=== PATIENT | male | born 1945 | race Caucasian/White ===

== ENCOUNTER 2016-12-01 21:10 | Emergency (ER) | payer MEDICARE, OTHER ==
[2016-12-01] MEDS ORDERED: Adacel (T-DAP) 0.5 ML VIAL ONE (21:34)
--- NOTE | 2016-12-01 22:29 | RAD ---
EXAM: LEFT HAND FIFTH DIGIT TWO VIEWS 12/01/16 HISTORY: Laceration. FINDINGS: There are multiple punctate foreign bodies in the soft tissues. Joint spaces are preserved. No fract ure. IMPRESSION: Multiple punctate foreign bodies. POS: [facility]
[2016-12-01] MEDS ORDERED: Bacitracin Zinc 1 Packet ONE (22:42)
== END 2016-12-01 23:10 | disposition home or self-care (01) ==
LOC: SCSER 21:10
DX: S56.428A Laceration of extensor muscle, fascia and tendon of left little finger at forearm level, initial encounter (principal); F32.9 Major depressive disorder, single episode, unspecified; I10 Essential (primary) hypertension; E78.5 Hyperlipidemia, unspecified; E11.9 Type 2 diabetes mellitus without complications; Z79.84 Long term (current) use of oral hypoglycemic drugs; Z79.899 Other long term (current) drug therapy; Z79.82 Long term (current) use of aspirin; Z23 Encounter for immunization; W27.0XXA Contact with workbench tool, initial encounter
CPT/HCPCS: 12001; 90471; 90715

== ENCOUNTER → 2016-12-05 | Day surgery (SDC) | payer MEDICARE ==
[~2016-12-05] MED LIST: Bacitracin Zinc Ointment 30 gm TUBE ONE; Betamet Acet/Betamet Na Ph 30 MG/5 ML VIAL ONE; Bupivacaine PF 0.5% 30 ML VIAL ONE; Fentanyl 100 MCG/2 ML VIAL ONE; Glycopyrrolate 0.2 MG/ML 5 ML SYRINGE ONE; HYDROcodone/Acetaminophen 5/325 mg Tablet ONE; Ketorolac Tromethamine 30 MG/ML VIAL ONE; Lidocaine 1% PF 5 ML VIAL ONE; Ondansetron HCl/PF 4 MG/2 ML Vial IVP PRN; Ondansetron HCl/PF 4 MG/2 ML Vial ONE; Promethazine HCl 25 MG/ML VIAL IM PRN; Promethazine HCl 25 MG/ML VIAL SLOW IVP PRN; Propofol 200 MG/20 ML VIAL ONE; Sodium Chloride 0.9% 10 ML ONE; ePHEDrine/0.9% NaCl/PF SYRINGE 50 mg/10 ml ONE
[2016-12-05 18:00] LABS: #Eosinphils 0.2 thou/uL (0.0-0.7); #Lymphocytes 1.5 thou/uL (1.20-3.40); #Monocytes 0.5 thou/uL (0.11-0.59); #Neutrophils 4.2 thou/uL (1.40-6.50); %Basophils 0.7 % (0.0-1.0); %Eosinophils 3.2 % (0.0-10.0); %Lymphocytes 23.6 % (21.0-51.0); %Monocytes 7.1 % (0.0-10.0); Hematocrit 44.7 % (42.0-52.0); Mean Platelet Volume 6.3 fL (7.4-10.4); Red Blood Cell (RBC) Count 4.66 mill/uL (4.70-6.10); White Blood Cell (WBC) Count 6.4 thou/uL (4.8-10.8)
--- NOTE | 2016-12-06 11:54 | OP ---
DATE OF PROCEDURE: 12/05/2016 PREOPERATIVE DIAGNOSIS: Left small finger wound. POSTOPERATIVE DIAGNOSES: 1. Left small finger wound. 2. Seventy percent laceration minimal contamination of small avulsion fracture of the middle phalan x. FINDINGS: Minimal contamination of the small finger wound with a small bony avulsion fracture dista l to the central slip; small finger, zone 2 extensor tendon laceration. PROCEDURES PERFORMED: 1. Debridement of bone, small fracture, 54449. 2. Debridement of wound, [id number]. 3. Extensor tendon repair, zone 2, 70% laceration. ANESTHESIA: General LMA technique, Calixto Martines CRNA, [place] Anesthesia. COMPLICATIONS: None. TOURNIQUET TIME: 18 minutes. ESTIMATED BLOOD LOSS: Less than 5 mL. INJECTABLE: 10 mL of 0.5% Marcaine, metacarpophalangeal joint block level at small finger. INDICATIONS: The patient had tendon laceration by exam that was probably not complete and may have involved the central slip or distal to it. For this reason because he had apparently avulsion, piec e of bone on the sagittal plane x-ray at the middle phalanx, operative intervention is indicated on a somewhat not elective schedule. DESCRIPTION OF PROCEDURE: After successful general LMA technique, the limb was prepped and draped. The patient had the wound extended after given a metacarpophalangeal block with 0.5% Marcaine 10 mL , 1 cm distal and 5 mm proximal. There was now a V-shaped incision. We elevated and found minimal amount of contamination particles under the skin, not deep, not involving the bone, but there was a small amount of bone that had a small avulsion piece of bone removed and this was on the more ulnar aspect, and it was here that he had a 70% laceration of the extensor mechanism, including 50% tendon and most of the oblique retinacular ligament area. For this reason, after debriding the bone with a curette, [employer] blade, debriding the skin with a co mbination of tenotomy scissors and [employer] blade, then the fat with the same instruments, we finished excision and debridement first down to and include the skin and fat and then using the large instru ments listed above to debride bone and the tendon area. Then, we irrigated with 1500 mL of normal s berny with antibiotics inside. At this point, the tendon edges were freshened, and then we re paired them using an interrupted [id number] 4-0 Prolene buried suture technique. Then, we coul d then see that the extension, even mild hyperextension restored with no flexion of the PIP joint. We elected because there was only 70% laceration not to pin it and because the central slip was not involved. After hemostasis was obtained, tourniquet deflated, the incision was closed with interrupted 4-0 nyl on. Bulky dressing applied over a finger tube gauze type dressing with a metal finger splint holdin g the PIP joint in neutral in between.
--- NOTE | 2016-12-07 06:29 | EKG ---
Test Reason : Blood Pressure : / mmHG Vent. Rate : 080 BPM Atrial Rate : 080 BPM P-R Int : 236 ms QRS Dur : 076 ms QT Int : 350 ms P-R-T Axes : 038 -08 008 degrees QTc Int : 403 ms Sinus rhythm with marked sinus arrhythmia with 1st degree A-V block Otherwise normal ECG When compared with ECG of 30-APR-2011 07:51, No significant change was found Confirmed by CHRISTELLE HER ([id number]) on 12/07/2016 6:28:52 AM Referred By: ANIKET Confirmed By:CHRISTELLE HER
== END ==
LOC: SDC 16:03
PROVIDERS: ATTEND Orthopaedic Surgery Hand Surgery
PROC: 0LQ80ZZ Repair Left Hand Tendon, Open Approach (ICD-10-PCS; principal; 2016-12-05)
DX: S62.627B Displaced fracture of middle phalanx of left little finger, initial encounter for open fracture (principal); E11.9 Type 2 diabetes mellitus without complications; I10 Essential (primary) hypertension; M06.9 Rheumatoid arthritis, unspecified; Z79.1 Long term (current) use of non-steroidal anti-inflammatories (NSAID); Z79.84 Long term (current) use of oral hypoglycemic drugs; Z79.82 Long term (current) use of aspirin; Z79.899 Other long term (current) drug therapy
CPT/HCPCS: 36415; 85025; 93005; 93010; 96374; A4216; J0702; J1885; J2001; J2405; J2704; J3010; J3490; S0020

== ENCOUNTER 2018-12-17 16:36 | Inpatient (IN) | payer MEDICARE ==
[~2018-12-17 16:36] MED LIST changes: -Bacitracin Zinc Ointment 30 gm TUBE ONE; -Betamet Acet/Betamet Na Ph 30 MG/5 ML VIAL ONE; -Bupivacaine PF 0.5% 30 ML VIAL ONE; +Dexamethasone 20 MG/5 ML VIAL ONE; -Fentanyl 100 MCG/2 ML VIAL ONE; -Glycopyrrolate 0.2 MG/ML 5 ML SYRINGE ONE; -HYDROcodone/Acetaminophen 5/325 mg Tablet ONE; +Heparin 10,000 UNITS/ 10 ML VIAL ONE; +Iopamidol 370 76% 100 ML VIAL ONE; -Ondansetron HCl/PF 4 MG/2 ML Vial IVP PRN; -Ondansetron HCl/PF 4 MG/2 ML Vial ONE; +Ondansetron PF 4 MG/2 ML Vial ONE; +PHENYLEPHRINE-NS 100 MCG/ML 10 ML SYRINGE ONE; +PROPOFOL 200 MG/20 ML VIAL ONE; -Promethazine HCl 25 MG/ML VIAL IM PRN; -Promethazine HCl 25 MG/ML VIAL SLOW IVP PRN; -Propofol 200 MG/20 ML VIAL ONE; -Sodium Chloride 0.9% 10 ML ONE; +Succinylcholine Chloride 20 MG/ML 10 ml SYRINGE FS ONE; +ePHEDrine 50 MG/ML VIAL ONE; -ePHEDrine/0.9% NaCl/PF SYRINGE 50 mg/10 ml ONE
[2018-12-17] MEDS ORDERED: Fentanyl 100 MCG/2 ML VIAL ONE ×2 (16:47→21:51)
--- NOTE | 2018-12-17 16:57 | RAD ---
XR Hand Lt 3 View STANDARD HISTORY: injury, left hand pain FINDINGS: There is dislocation at the first carpometacarpal joint.
[2018-12-17] MEDS ORDERED: Morphine 4 MG/ML VIAL ONE ×3 (17:05→18:18)
[2018-12-17] MEDS ORDERED: Ondansetron PF 4 MG/2 ML Vial ONE (17:05)
[2018-12-17] MEDS ORDERED: Gentamicin Sulfate 380 MG in Sodium Chloride 0.9% 100 ML IVPB ONE (17:30)
[2018-12-17 18:45] LABS: #Eosinphils 0.2 thou/uL (0.0-0.7); #Lymphocytes 1.4 thou/uL (1.20-3.40); #Monocytes 0.6 thou/uL (0.11-0.59); %Basophils 0.1 % (0.0-1.0); %Eosinophils 1.6 % (0.0-10.0); %Lymphocytes 11.5 % (21.0-51.0); %Monocytes 5.1 % (0.0-10.0); %Neutrophils 81.7 % (42.0-75.0); Hemoglobin 13.3 g/dL (14.0-18.0); Mean Corpuscular HGB CONC 33.8 g/dL (32.0-36.0); Mean Corpuscular Hemoglobin 32.3 pg (27.0-31.0); Mean Corpuscular Volume 95.5 fL (78.0-98.0); Mean Platelet Volume 7.2 fL (7.4-10.4); Platelet Count 234 thou/uL (130-400); RBC Distribution Width 12.3 % (11.5-14.5); Red Blood Cell (RBC) Count 4.12 mill/uL (4.70-6.10); White Blood Cell (WBC) Count 12.2 thou/uL (4.8-10.8)
[2018-12-17 18:51] LABS: PTT 23.3 SEC (22.9-36.1); Prothrombin Time 12.9 SEC (12.0-14.7)
[2018-12-17 19:05] LABS: ALT (SGPT) 26 U/L (8-55); AST (SGOT) 27 U/L (5-34); Albumin 4.1 g/dL (3.4-4.8); Alkaline Phosphatase 69 U/L (40-110); Anion Gap 15 mmol/L (10-20); BUN (Urea Nitrogen) 31 mg/dL (8.4-25.7); Bilirubin, Total 0.3 mg/dL (0.2-1.2); Calc. Creatinine Clearance 0 mL/min (70-130); Calcium 9.2 mg/dL (7.8-10.44); Carbon Dioxide 23 mmol/L (23-31); Chloride 105 mmol/L (98-107); Estimated GFR-MDRD 47; Globulin 2.7 g/dL (2.4-3.5); Glucose 156 mg/dL (83-110); Potassium 4.7 mmol/L (3.5-5.1); Protein, Total 6.8 g/dL (5.8-8.1); Sodium 138 mmol/L (136-145)
[2018-12-17] MEDS ORDERED: Ketamine 50 MG/ML (10ML VIAL) ONE (19:19)
[2018-12-17] MEDS ORDERED: Heparin 10,000 UNITS/1 ML VIAL ONE (21:20)
[2018-12-17] MEDS ORDERED: Hetastarch 6% 500 ML 500 ML ONE (21:20)
[2018-12-17] MEDS ORDERED: Lidocaine 2% w/Epinephrine 1:200K 20 ML VIAL ONE (21:20)
--- NOTE | 2018-12-17 21:29 | CT ---
EXAM: Abdomen and pelvic CT scan with contrast: HISTORY: Left flank pain COMPARISON: None FINDINGS: Pleural-based consolidations are seen at the lower chest. There is a moderate to large hiatal hernia. Liver: Unremarkable. Gallbladder: Unremarkable. Pancreas: Unremarkable Spleen: Granulomatous calcifications Adrenal glands: Unremarkable. Kidneys: Nonobstructing left renal calculi. Right renal cyst. Bowel: No evidence for bowel obstruction. Numerous colonic diverticula. Prominent region of increased subcutaneous density and skin thickening of the ventral left abdomen. Urinary Bladder: The urinary bladder is unremarkable. Free Air: No free air. Ascites: No ascites. Osseous structures: There is diffuse osseous degenerative change. Multilevel sclerosis of the low tho racic and lumbosacral spine present. There is a moderate central compression deformity of T12, likely chronic, given imaging appearance. Correlate clinically. IMPRESSION: Prominent inflammation/edema of the ventral subcutaneous tissues and skin thickening/skin surface irr egularity of the left ventral abdomen. Correlate with physical exam. Probable chronic moderate central compression deformity of T12 adjacent multilevel degenerative scler osis of the imaged spine. Correlate clinically. Additional findings as detailed above. Transcribed Date/Time: 12/17/2018 9:35 PM
[2018-12-17] MEDS ORDERED: Sodium Chloride 0.9% 50 ML ONE (22:02)
[2018-12-17] MEDS ORDERED: Betamet Acet/Betamet Na Ph 30 MG/5 ML VIAL ONE ×2 (23:10)
[2018-12-17] MEDS ORDERED: Penicillin G Potassium 3 MILL.UNITS in Sodium Chloride 0.9% 50 ML IVPB SCH (23:45)
[2018-12-17] MEDS ORDERED: Gentamicin 80 MG/2 ML VIAL ONE (23:58)
[2018-12-18] MEDS ORDERED: Heparin 25,000 units/D5W 500 ML ONE (01:08)
[2018-12-18] MEDS ORDERED: PACU-Morphine 4MG/ML VIAL SLOW IVP PRN (01:58)
[2018-12-18] MEDS ORDERED: Promethazine HCl 25 MG/ML VIAL SLOW IVP PRN (01:58)
[2018-12-18] MEDS ORDERED: Promethazine HCl 25 MG/ML VIAL IM PRN ×2 (01:58→02:38)
[2018-12-18] MEDS ORDERED: HYDROmorphone 2 MG/ML VIAL SLOW IVP PRN (01:58)
[2018-12-18] MEDS ORDERED: Morphine Sulfate 2 MG/ML SYRINGE SLOW IVP PRN (01:58)
[2018-12-18] MEDS ORDERED: Ondansetron HCl/PF 4 MG/2 ML Vial IVP PRN (01:58)
[2018-12-18] MEDS ORDERED: Fentanyl 100 MCG/2 ML VIAL ONE (02:13)
[2018-12-18] MEDS ORDERED: traMADol HCl 50 MG TAB PO PRN ×2 (02:38→11:47)
[2018-12-18] MEDS ORDERED: HYDROcodone/Acetaminophen 5/325 mg Tablet PO PRN (02:38)
[2018-12-18] MEDS ORDERED: HYDROcodone/Acetaminophen 10/325 mg Tablet PO PRN (02:38)
[2018-12-18] MEDS ORDERED: Bisacodyl 10 MG SUPP PR PRN (02:38)
[2018-12-18] MEDS ORDERED: Communication Order-Pharmacy FS PRN (02:45)
[2018-12-18] MEDS ORDERED: TETANUS AND DIPHTHERIA TOX/PF 0.5 ML DISP.SYRIN IM SCH (02:45)
[2018-12-18] MEDS ORDERED: Heparin 25,000 units/D5W 500 ML IV SCH (03:45)
[2018-12-18] MEDS: Morphine 4 MG/ML VIAL SLOW IVP PRN ×3 (04:22→23:46)
[2018-12-18 05:16] VITALS: BMI 27.5
[2018-12-18 05:25] LABS: #Lymphocytes 0.7 thou/uL (1.20-3.40); #Monocytes 0.4 thou/uL (0.11-0.59); #Neutrophils 9.9 thou/uL (1.40-6.50); %Eosinophils 0.1 % (0.0-10.0); %Lymphocytes 6.4 % (21.0-51.0); %Monocytes 3.9 % (0.0-10.0); %Neutrophils 89.7 % (42.0-75.0); Hemoglobin 11.4 g/dL (14.0-18.0); Mean Corpuscular HGB CONC 33.2 g/dL (32.0-36.0); Mean Corpuscular Hemoglobin 32.6 pg (27.0-31.0); Mean Corpuscular Volume 98.3 fL (78.0-98.0); Mean Platelet Volume 7.3 fL (7.4-10.4); Platelet Count 231 thou/uL (130-400); RBC Distribution Width 12.4 % (11.5-14.5); White Blood Cell (WBC) Count 11.1 thou/uL (4.8-10.8)
[2018-12-18 05:52] LABS: ALT (SGPT) 21 U/L (8-55); AST (SGOT) 32 U/L (5-34); Albumin 3.5 g/dL (3.4-4.8); Alkaline Phosphatase 55 U/L (40-110); Anion Gap 16 mmol/L (10-20); BUN (Urea Nitrogen) 33 mg/dL (8.4-25.7); Bilirubin, Total 0.3 mg/dL (0.2-1.2); Calc. Creatinine Clearance 42 mL/min (70-130); Calcium 8.3 mg/dL (7.8-10.44); Carbon Dioxide 22 mmol/L (23-31); Chloride 104 mmol/L (98-107); Estimated GFR-MDRD 41; Globulin 2.3 g/dL (2.4-3.5); Glucose 200 mg/dL (83-110); Potassium 5.6 mmol/L (3.5-5.1); Protein, Total 5.8 g/dL (5.8-8.1); Sodium 136 mmol/L (136-145)
[2018-12-18] MEDS: Acetaminophen/Codeine 30-300mg Tablet PO PRN (05:55)
[2018-12-18] MEDS: Vancomycin HCl 1.25 GM in Sodium Chloride 0.9% 250 ML 250 ML IVPB SCH (05:59)
--- NOTE | 2018-12-18 07:49 | RAD ---
LEFT FINGERS: A total of two fluoroscopic images are presented from OR. INDICATION: Open reduction and internal fixation of left thumb. FINDINGS/IMPRESSION: These images demonstrate pinning of the first carpometacarpal joint. POS: OFF
[2018-12-18] MEDS: Aspirin 81 mg Enteric Coated Tablet PO SCH ×2 (08:11→20:53)
[2018-12-18] MEDS ORDERED: Vancomycin HCl 1 GM in Premix Bag 1 BAG IVPB SCH (09:00)
[2018-12-18] MEDS: Meperidine HCl/PF 25 MG/ML VIAL IM PRN ×3 (09:03→21:02)
[2018-12-18] MEDS ORDERED: Dextrose 5% in Water 1,000 ML IV PRN (11:49)
[2018-12-18] MEDS ORDERED: HumaLOG 300 UNITS/3 ML VIAL SC PRN (11:49)
[2018-12-18] MEDS ORDERED: Dextrose 50% Abboject 50 ML SYRINGE SLOW IVP PRN (11:49)
[2018-12-18 13:08] LABS: Anion Gap 14 mmol/L (10-20); BUN (Urea Nitrogen) 36 mg/dL (8.4-25.7); Calc. Creatinine Clearance 38 mL/min (70-130); Calcium 7.5 mg/dL (7.8-10.44); Carbon Dioxide 22 mmol/L (23-31); Chloride 104 mmol/L (98-107); Estimated GFR-MDRD 36; Glucose 213 mg/dL (83-110); Potassium 5.1 mmol/L (3.5-5.1); Sodium 135 mmol/L (136-145)
[2018-12-18] MEDS: Gentamicin 80 MG/2 ML VIAL IM SCH (18:13)
[2018-12-18] MEDS: Hetastarch 6% 500 ML 500 ML IVPB SCH (18:13)
[2018-12-18] MEDS: HumaLOG 300 UNITS/3 ML VIAL SC PRN (18:28)
[2018-12-18] MEDS: Atorvastatin Calcium 40 MG TAB PO SCH (20:53)
[2018-12-18] MEDS ORDERED: Prevnar 13-Val Conj/PF 0.5 ML SYRINGE IM ONE (21:00)
[2018-12-18] MEDS ORDERED: FLU VACC TS2019-20(65YR UP)/PF 180 MCG/0.5 ML SYRINGE IM ONE (21:00)
[2018-12-19] MEDS: Meperidine HCl/PF 25 MG/ML VIAL IM PRN ×3 (03:25→16:15)
[2018-12-19 03:50] LABS: #Eosinphils 0.1 thou/uL (0.0-0.7); #Lymphocytes 1.4 thou/uL (1.20-3.40); #Monocytes 0.6 thou/uL (0.11-0.59); #Neutrophils 5.7 thou/uL (1.40-6.50); %Basophils 0.3 % (0.0-1.0); %Eosinophils 1.4 % (0.0-10.0); %Lymphocytes 17.8 % (21.0-51.0); %Monocytes 7.1 % (0.0-10.0); %Neutrophils 73.4 % (42.0-75.0); Hemoglobin 9.2 g/dL (14.0-18.0); Mean Corpuscular HGB CONC 33.7 g/dL (32.0-36.0); Mean Corpuscular Hemoglobin 32.8 pg (27.0-31.0); Mean Corpuscular Volume 97.3 fL (78.0-98.0); Mean Platelet Volume 6.7 fL (7.4-10.4); Platelet Count 176 thou/uL (130-400); RBC Distribution Width 12.6 % (11.5-14.5); Red Blood Cell (RBC) Count 2.82 mill/uL (4.70-6.10); White Blood Cell (WBC) Count 7.8 thou/uL (4.8-10.8)
[2018-12-19] MEDS: Vancomycin HCl 1.25 GM in Sodium Chloride 0.9% 250 ML 250 ML IVPB SCH (05:45)
[2018-12-19] MEDS: Gentamicin 80 MG/2 ML VIAL IM SCH (07:24)
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
[2018-12-19] MEDS: Aspirin 81 mg Enteric Coated Tablet PO SCH ×2 (09:12→20:07)
[2018-12-19] MEDS ORDERED: Bupivacaine PF 0.5% 30 ML VIAL ONE (10:26)
[2018-12-19] MEDS ORDERED: Bacitracin Zinc Ointment 30 gm TUBE ONE (10:26)
[2018-12-19] MEDS ORDERED: Sodium Chloride 0.9% 10 ML ONE (10:26)
[2018-12-19] MEDS ORDERED: Fentanyl 100 MCG/2 ML VIAL ONE ×2 (10:35→12:25)
[2018-12-19] MEDS ORDERED: Thrombin 5000 UNITS/5 ML VIAL ONE (11:15)
[2018-12-19] MEDS ORDERED: PACU-Morphine 4MG/ML VIAL SLOW IVP PRN (11:48)
[2018-12-19] MEDS ORDERED: Promethazine HCl 25 MG/ML VIAL SLOW IVP PRN (11:48)
[2018-12-19] MEDS ORDERED: HYDROmorphone 2 MG/ML VIAL SLOW IVP PRN (11:48)
[2018-12-19] MEDS ORDERED: Ondansetron HCl/PF 4 MG/2 ML Vial IVP PRN (11:48)
[2018-12-19] MEDS ORDERED: Promethazine HCl 25 MG/ML VIAL IM PRN (11:48)
[2018-12-19] MEDS ORDERED: PROPOFOL 200 MG/20 ML VIAL ONE (13:41)
[2018-12-19] MEDS ORDERED: Lidocaine 1% PF 5 ML VIAL ONE (13:41)
[2018-12-19] MEDS ORDERED: PHENYLEPHRINE-NS 100 MCG/ML 10 ML SYRINGE ONE (13:41)
[2018-12-19] MEDS ORDERED: Ondansetron PF 4 MG/2 ML Vial ONE (13:41)
[2018-12-19 14:02] LABS: Anion Gap 11 mmol/L (10-20); BUN (Urea Nitrogen) 29 mg/dL (8.4-25.7); Calc. Creatinine Clearance 53 mL/min (70-130); Calcium 7.3 mg/dL (7.8-10.44); Carbon Dioxide 24 mmol/L (23-31); Chloride 108 mmol/L (98-107); Estimated GFR-MDRD 53; Glucose 135 mg/dL (83-110); Potassium 4.6 mmol/L (3.5-5.1); Sodium 138 mmol/L (136-145)
[2018-12-19] MEDS: Tamsulosin HCl 0.4 MG CAP PO SCH (16:14)
[2018-12-19] MEDS ORDERED: Gentamicin 80 MG/2 ML VIAL IM SCH (18:00)
[2018-12-19] MEDS: HumaLOG 300 UNITS/3 ML VIAL SC PRN (18:15)
--- NOTE | 2018-12-19 19:21 | PDOC.HOSPP ---
- Subjective Encounter Date: 12/19/18 Encounter Time: 16:00 Subjective: pt up in bed feels well - Objective Vital Signs & Weight: Vital Signs (12 hours) Temp Pulse Resp BP Pulse Ox 12/19/18 07:29 98.9 F 100 12 152/82 H 96 Weight Weight 170 lb 6 oz I&O: 12/18/18 12/19/18 12/20/18 06:59 06:59 06:59 Intake Total 3738 Output Total 1300 Balance 2438 Result Diagrams: 12/19/18 03:38 12/19/18 13:23 Additional Labs: Accuchecks 12/19/18 12/19/18 12/18/18 16:03 05:18 20:54 POC Glucose 195 H 159 H 203 H Hospitalist ROS - Review of Systems Respiratory: denies: cough, dry, shortness of breath, hemoptysis, SOB with excertion, pleuritic pain, sputum, wheezing, other Cardiovascular: denies: chest pain, palpitations, orthopnea, paroxysmal noc. dyspnea, edema, light headedness, other Gastrointestinal: denies: nausea, vomiting, abdominal pain, diarrhea, constipation, melena, hematochezia, other - Medication Medications: Active Medications Generic Name Dose Route Start Last Admin Trade Name Freq PRN Reason Stop Dose Admin Acetaminophen/Codeine Phosphate 1 tab 12/18/18 02:38 12/18/18 05:55 Tylenol #3 PO 1 tab Q4H PRN Administration Moderate Pain (4-6) Hydrocodone Bitart/Acetaminophen 2 tab 12/18/18 02:38 12/18/18 08:11 [place] 5/325 PO 2 tab Q4H PRN Administration Severe Pain (7-10) Aspirin 81 mg 12/18/18 09:00 12/19/18 09:12 Ecotrin PO Not Given BID JAMAR Atorvastatin Calcium 80 mg 12/18/18 21:00 12/18/18 20:53 Lipitor PO 80 mg HS JAMAR Administration Gentamicin Sulfate 80 mg 12/19/18 18:00 12/19/18 18:15 Gentamicin Sulfate IM 12/19/18 23:59 80 mg 1800 JAMAR Administration HCTZ/Losartan Potassium 1 tab 12/18/18 21:00 12/18/18 20:53 Hyzaar 50/12.5 PO 1 tab HS JAMAR Administration Hetastarch/Sodium Chloride 500 mls @ 30 mls/hr 12/18/18 03:45 12/18/18 18:13 Hespan IVPB 500 mls INF JAMAR Administration Vancomycin HCl 1.25 gm/ Sodium 250 mls @ 166.667 mls/hr 12/18/18 06:00 05:45 Chloride IVPB 250 mls Q24HR JAMAR Administration Insulin Human Lispro 0 units 12/18/18 11:49 12/19/18 18:15 Humalog SC 2 unit .MILD SLIDING SCALE PRN Administration Mild Correctional Scale Insulin Human Lispro 0 units 12/18/18 11:49 12/18/18 21:03 Humalog SC 2 unit .BEDTIME SLIDING SC PRN Administration Bedtime Correctional Scale Meperidine HCl 25 mg 12/18/18 02:43 12/19/18 16:15 Demerol IM 25 mg Q6H PRN Administration Severe Pain (7-10) Morphine Sulfate 4 mg 12/18/18 02:38 12/18/18 23:46 Morphine SLOW IVP 4 mg Q2H PRN Administration Severe Pain (7-10) Tamsulosin HCl 0.4 mg 12/19/18 09:00 12/19/18 16:14 Flomax PO 0.4 mg DAILY JAMAR Administration - Exam Neck: negative: supple, symmetric, no JVD, no thyromegaly, no lymphadenopathy, no carotid bruit, JVD Heart: negative: RRR, no murmur, no gallops, no rubs, normal peripheral pulses, irregular, diminshed peripheral pulses, murmur present, II/IV, III/IV Respiratory: negative: CTAB, no wheezes, no rales, no ronchi, normal chest expansion, no tachypnea, normal percussion, rales, rhonchi, tachypneic, wheezes Gastrointestinal: negative: soft, non-tender, non-distended, normal bowel sounds , no palpable masses, no hepatomegaly, no splenomegaly, no bruit, no guarding, no rigidity, tender to palpation, distended, diminished bowl sounds, voluntary guarding Hosp A/P (1) Diabetes Code(s): E11.9 - TYPE 2 DIABETES MELLITUS WITHOUT COMPLICATIONS Status: Acute (2) HTN (hypertension) Code(s): I10 - ESSENTIAL (PRIMARY) HYPERTENSION Status: Acute (3) Thumb fracture Code(s): S62.509A - FRACTURE OF UNSP PHALANX OF UNSP THUMB, INIT FOR CLOS FX Status: Acute - Plan pt on sliding scale insulin will continue, will start metformin in am. will continue his home bp meds.
[2018-12-19] MEDS: Atorvastatin Calcium 40 MG TAB PO SCH (20:07)
[2018-12-19] MEDS: Acetaminophen/Codeine 30-300mg Tablet PO PRN (20:11)
[2018-12-20] MEDS: Hetastarch 6% 500 ML 500 ML IVPB SCH (03:46)
[2018-12-20 05:15] LABS: Vancomycin, Trough 9.1 ug/mL
[2018-12-20] MEDS: Vancomycin HCl 750 MG in Sodium Chloride 0.9% 250 ML 250 ML IVPB SCH ×2 (06:20→18:14)
[2018-12-20] MEDS: HumaLOG 300 UNITS/3 ML VIAL SC PRN ×3 (06:43→18:14)
[2018-12-20] MEDS: Tamsulosin HCl 0.4 MG CAP PO SCH (08:15)
[2018-12-20] MEDS: Aspirin 81 mg Enteric Coated Tablet PO SCH ×2 (08:15→20:18)
[2018-12-20] MEDS ORDERED: Bisacodyl 5 MG TAB PO PRN (09:57)
[2018-12-20] MEDS ORDERED: Bisacodyl 5 MG TAB PO SCH (10:00)
--- NOTE | 2018-12-20 13:09 | PDOC.HOSPP ---
- Subjective Encounter Date: 12/20/18 Encounter Time: 08:40 Subjective: Pt seen for followup re: hypertension. Feels better, no complaints. - Objective Vital Signs & Weight: Vital Signs (12 hours) Temp Pulse Resp BP Pulse Ox 12/20/18 11:20 98.2 F 82 16 104/65 97 12/20/18 08:29 98.6 F 87 18 123/71 94 L 12/20/18 08:15 94 L 12/20/18 04:00 98.6 F 90 16 102/61 94 L Weight Weight 170 lb 6 oz I&O: 12/19/18 12/20/18 12/21/18 06:59 06:59 06:59 Intake Total 3738 1382 Output Total 1300 Balance 2438 1382 Result Diagrams: 12/19/18 03:38 12/19/18 13:23 Additional Labs: Accuchecks 12/20/18 12/20/18 12/19/18 11:25 05:40 20:47 POC Glucose 163 H 230 H 187 H 12/19/18 16:03 POC Glucose 195 H Labs and MARs reviewed by ut Hospitalist ROS - Review of Systems Cardiovascular: denies: chest pain, palpitations, orthopnea, paroxysmal noc. dyspnea, edema, light headedness Gastrointestinal: denies: nausea, vomiting, abdominal pain, diarrhea, constipation, melena, hematochezia - Medication Medications: Active Medications Generic Name Dose Route Start Last Admin Trade Name Freq PRN Reason Stop Dose Admin Acetaminophen/Codeine Phosphate 1 tab 12/18/18 02:38 12/19/18 20:11 Tylenol #3 PO 1 tab Q4H PRN Administration Moderate Pain (4-6) Hydrocodone Bitart/Acetaminophen 2 tab 12/18/18 02:38 12/18/18 08:11 [place] 5/325 PO 2 tab Q4H PRN Administration Severe Pain (7-10) Aspirin 81 mg 12/18/18 09:00 12/20/18 08:15 Ecotrin PO 81 mg BID JAMAR Administration Atorvastatin Calcium 80 mg 12/18/18 21:00 12/19/18 20:07 Lipitor PO 80 mg HS JAMAR Administration HCTZ/Losartan Potassium 1 tab 12/18/18 21:00 12/19/18 20:07 Hyzaar 50/12.5 PO 1 tab HS JAMAR Administration Hetastarch/Sodium Chloride 500 mls @ 30 mls/hr 12/18/18 03:45 12/20/18 03:46 Hespan IVPB 500 mls INF JAMAR Administration Vancomycin HCl 750 mg/ Sodium 250 mls @ 250 mls/hr 12/20/18 06:00 12/20/18 06 :20 Chloride IVPB 250 mls 0600,1800 JAMAR Administration Insulin Human Lispro 0 units 12/18/18 11:49 12/18/18 21:03 Humalog SC 2 unit .BEDTIME SLIDING SC PRN Administration Bedtime Correctional Scale Meperidine HCl 25 mg 12/18/18 02:43 12/19/18 16:15 Demerol IM 25 mg Q6H PRN Administration Severe Pain (7-10) Morphine Sulfate 4 mg 12/18/18 02:38 12/18/18 23:46 Morphine SLOW IVP 4 mg Q2H PRN Administration Severe Pain (7-10) Pantoprazole Sodium 40 mg 12/20/18 09:00 12/20/18 08:15 Protonix PO 40 mg DAILY JAMAR Administration Tamsulosin HCl 0.4 mg 12/19/18 09:00 12/20/18 08:15 Flomax PO 0.4 mg DAILY JAMAR Administration - Exam General Appearance: NAD Eye: anicteric sclera ENT: moist mucosa Neck: supple, no JVD Heart: RRR, no rubs Respiratory: CTAB Gastrointestinal: soft, non-tender, normal bowel sounds Skin: normal turgor Neurological: no weakness Psychiatric: normal affect, normal behavior Hosp A/P (1) HTN (hypertension) Code(s): I10 - ESSENTIAL (PRIMARY) HYPERTENSION Status: Chronic (2) Diabetes Code(s): E11.9 - TYPE 2 DIABETES MELLITUS WITHOUT COMPLICATIONS Status: Chronic - Plan Likely chronic kidney disease stage 3. HTN controlled. Blood sugars high, switch to moderate insulin sliding scale.
[2018-12-20] MEDS: Atorvastatin Calcium 40 MG TAB PO SCH (20:19)
[2018-12-21] MEDS: Vancomycin HCl 750 MG in Sodium Chloride 0.9% 250 ML 250 ML IVPB SCH (05:09)
[2018-12-21 07:34] VITALS: TEMP 98.4
[2018-12-21] MEDS: Tamsulosin HCl 0.4 MG CAP PO SCH (08:41)
[2018-12-21] MEDS: Aspirin 81 mg Enteric Coated Tablet PO SCH (08:41)
[2018-12-21 11:39] VITALS: BP 131/77
[2018-12-21] MEDS: HumaLOG 300 UNITS/3 ML VIAL SC PRN (12:37)
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
--- NOTE | 2018-12-22 23:07 | EKG ---
Test Reason : PREOP Blood Pressure : / mmHG Vent. Rate : 095 BPM Atrial Rate : 095 BPM P-R Int : 270 ms QRS Dur : 076 ms QT Int : 322 ms P-R-T Axes : 050 008 024 degrees QTc Int : 404 ms Sinus rhythm with 1st degree A-V block Low voltage QRS Borderline ECG When compared with ECG of 05-DEC-2016 17:21, No significant change was found Confirmed by HAILE GOOD M.D. ([id number]) on 12/22/2018 11:07:01 PM Referred By: Donald SHELDON Confirmed By:HAILE GOOD M.D.
== END 2018-12-21 15:03 | disposition home or self-care (01) | DRG 513 ==
LOC: ERS 16:36 → SDC/OP 21:41 → SURG A 12-18 02:47
PROVIDERS: ADMIT Orthopaedic Surgery Hand Surgery; ATTEND Orthopaedic Surgery Hand Surgery
PROC: 0KBD0ZZ Excision of Left Hand Muscle, Open Approach (ICD-10-PCS; principal; 2018-12-18)
PROC: 0X3K0ZZ Control Bleeding in Left Hand, Open Approach (ICD-10-PCS; 2018-12-18)
PROC: 3E02340 Introduction of Influenza Vaccine into Muscle, Percutaneous Approach (ICD-10-PCS; 2018-12-18)
PROC: 01Q40ZZ Repair Ulnar Nerve, Open Approach (ICD-10-PCS; 2018-12-18)
PROC: 03QA0ZZ Repair Left Ulnar Artery, Open Approach (ICD-10-PCS; 2018-12-18)
PROC: 0PSQ04Z Reposition Left Metacarpal with Internal Fixation Device, Open Approach (ICD-10-PCS; 2018-12-18)
PROC: 0PSN04Z Reposition Left Carpal with Internal Fixation Device, Open Approach (ICD-10-PCS; 2018-12-18)
DX: S62.502B Fracture of unspecified phalanx of left thumb, initial encounter for open fracture (principal); S65.012A Laceration of ulnar artery at wrist and hand level of left arm, initial encounter; I96 Gangrene, not elsewhere classified; T21.22XA Burn of second degree of abdominal wall, initial encounter; S64.02XA Injury of ulnar nerve at wrist and hand level of left arm, initial encounter; S61.402A Unspecified open wound of left hand, initial encounter; Z23 Encounter for immunization; X08.8XXA Exposure to other specified smoke, fire and flames, initial encounter; W40.1XXA Explosion of explosive gases, initial encounter; Y92.89 Other specified places as the place of occurrence of the external cause; N18.3 Chronic kidney disease, stage 3 (moderate); I12.9 Hypertensive chronic kidney disease with stage 1 through stage 4 chronic kidney disease, or unspecified chronic kidney disease; E11.22 Type 2 diabetes mellitus with diabetic chronic kidney disease; E78.5 Hyperlipidemia, unspecified; E78.00 Pure hypercholesterolemia, unspecified; F32.9 Major depressive disorder, single episode, unspecified; Z79.84 Long term (current) use of oral hypoglycemic drugs; Z79.899 Other long term (current) drug therapy
CPT/HCPCS: 36415; 36416; 74177; 76000; 80048; 80053; 80170; 80202; 85025; 85610; 85730; 86850; 86900; 86901; 93005; 93010; 96365; 96367; 96375; 96376; 99292; J0690; J0702; J1580; J1644; J2175; J2270; J2405; J2540; J3010; J3370; J3490; J7050; Q9967; S0020

== ENCOUNTER 2018-12-29 16:26 | Emergency (ER) | payer MEDICARE | END 2018-12-29 20:12 | disposition home or self-care (01) | LOC: ERS 16:26 | DX: T65.91XA Toxic effect of unspecified substance, accidental (unintentional), initial encounter (principal); T21.42XA Corrosion of unspecified degree of abdominal wall, initial encounter; E11.9 Type 2 diabetes mellitus without complications; E78.5 Hyperlipidemia, unspecified; E78.00 Pure hypercholesterolemia, unspecified; I10 Essential (primary) hypertension; F32.9 Major depressive disorder, single episode, unspecified | CPT/HCPCS: 99283 ==

== ENCOUNTER 2019-01-14 08:00 | Outpatient (CLI) | payer MEDICARE, OTHER ==
[2019-01-14] MEDS ORDERED: Sodium Chloride 0.9% 15 ML NEB ONE (09:00)
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
== END 2019-01-14 08:01 | disposition home or self-care (01) ==
LOC: WCC 08:00
PROVIDERS: ATTEND Family Medicine
DX: T21.4 Corrosion of unspecified degree of trunk (principal); I10 Essential (primary) hypertension; M19.90 Unspecified osteoarthritis, unspecified site; K21.9 Gastro-esophageal reflux disease without esophagitis; E11.9 Type 2 diabetes mellitus without complications; D64.9 Anemia, unspecified; N20.0 Calculus of kidney; N40.0 Benign prostatic hyperplasia without lower urinary tract symptoms
CPT/HCPCS: 11042; 99203; A4218; G0463

== ENCOUNTER 2019-01-21 11:47 | Outpatient (CLI) | payer MEDICARE, OTHER ==
[~2019-01-21 11:47] MED LIST changes: -Dexamethasone 20 MG/5 ML VIAL ONE; -Heparin 10,000 UNITS/ 10 ML VIAL ONE; -Iopamidol 370 76% 100 ML VIAL ONE; -Ketorolac Tromethamine 30 MG/ML VIAL ONE; -Lidocaine 1% PF 5 ML VIAL ONE; +Lidocaine 2% PF 5 ML VIAL ONE; -Ondansetron PF 4 MG/2 ML Vial ONE; -PHENYLEPHRINE-NS 100 MCG/ML 10 ML SYRINGE ONE; -PROPOFOL 200 MG/20 ML VIAL ONE; +Sodium Chloride 0.9% 15 ML NEB ONE; -Succinylcholine Chloride 20 MG/ML 10 ml SYRINGE FS ONE; -ePHEDrine 50 MG/ML VIAL ONE
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
== END 2019-01-21 11:48 | disposition home or self-care (01) ==
LOC: WCC 11:47
PROVIDERS: ATTEND Family Medicine
DX: S31.109D Unspecified open wound of abdominal wall, unspecified quadrant without penetration into peritoneal cavity, subsequent encounter (principal); I10 Essential (primary) hypertension; K21.9 Gastro-esophageal reflux disease without esophagitis; M19.90 Unspecified osteoarthritis, unspecified site; E11.9 Type 2 diabetes mellitus without complications; D64.9 Anemia, unspecified; N20.0 Calculus of kidney; N40.0 Benign prostatic hyperplasia without lower urinary tract symptoms
CPT/HCPCS: 11042; A4218; J2001

== ENCOUNTER 2019-02-04 10:30 | Outpatient (CLI) | payer MEDICARE, OTHER ==
[2019-02-04] MEDS ORDERED: Sodium Chloride 0.9% 15 ML NEB ONE (17:05)
[2019-02-04] MEDS ORDERED: Lidocaine 2% PF 100 mg/5 ml Syringe ONE (17:05)
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
== END 2019-02-04 10:31 | disposition home or self-care (01) ==
LOC: WCC 10:30
PROVIDERS: ATTEND Family Medicine
DX: T81.89XD Other complications of procedures, not elsewhere classified, subsequent encounter (principal); I10 Essential (primary) hypertension; M19.90 Unspecified osteoarthritis, unspecified site; K21.9 Gastro-esophageal reflux disease without esophagitis; E11.9 Type 2 diabetes mellitus without complications; D64.9 Anemia, unspecified; N20.0 Calculus of kidney; N40.0 Benign prostatic hyperplasia without lower urinary tract symptoms
CPT/HCPCS: A4218; J2001

== ENCOUNTER 2019-02-11 15:47 | Outpatient (CLI) | payer MEDICARE, OTHER ==
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
[~2019-02-11 15:47] MED LIST changes: +Lidocaine 2% PF 100 mg/5 ml Syringe ONE; -Lidocaine 2% PF 5 ML VIAL ONE
== END 2019-02-11 15:48 | disposition home or self-care (01) ==
LOC: WCC 15:47
PROVIDERS: ATTEND Family Medicine
DX: T21.4 Corrosion of unspecified degree of trunk (principal); I10 Essential (primary) hypertension; M19.90 Unspecified osteoarthritis, unspecified site; K21.9 Gastro-esophageal reflux disease without esophagitis; E11.9 Type 2 diabetes mellitus without complications; D64.9 Anemia, unspecified; N20.0 Calculus of kidney; N40.0 Benign prostatic hyperplasia without lower urinary tract symptoms
CPT/HCPCS: A4218; J2001

== ENCOUNTER 2019-02-18 12:11 | Day surgery (SDC) | payer MEDICARE ==
[2019-02-17 11:50] VITALS: BMI 27.4
[2019-02-18] MEDS ORDERED: PROPOFOL 200 MG/20 ML VIAL ONE (13:09)
[2019-02-18] MEDS ORDERED: Bacitracin Zinc Ointment 30 gm TUBE ONE (13:35)
[2019-02-18] MEDS ORDERED: Bupivacaine PF 0.5% 30 ML VIAL ONE (13:35)
[2019-02-18] MEDS ORDERED: Sodium Chloride 0.9% 10 ML ONE (13:37)
[2019-02-18 14:04] LABS: #Eosinphils 0.2 thou/uL (0.0-0.7); #Lymphocytes 1.9 thou/uL (1.20-3.40); #Monocytes 0.5 thou/uL (0.11-0.59); #Neutrophils 4.3 thou/uL (1.40-6.50); %Basophils 0.5 % (0.0-1.0); %Eosinophils 3.2 % (0.0-10.0); %Lymphocytes 26.8 % (21.0-51.0); %Monocytes 7.6 % (0.0-10.0); %Neutrophils 61.8 % (42.0-75.0); Hemoglobin 13.5 g/dL (14.0-18.0); Mean Corpuscular HGB CONC 31.7 g/dL (32.0-36.0); Mean Corpuscular Hemoglobin 30.1 pg (27.0-31.0); Mean Corpuscular Volume 94.8 fL (78.0-98.0); Mean Platelet Volume 6.8 fL (7.4-10.4); Platelet Count 265 thou/uL (130-400); RBC Distribution Width 13.1 % (11.5-14.5)
[2019-02-18] MEDS ORDERED: Midazolam HCl 2 mg/2 ml Vial ONE (14:07)
[2019-02-18] MEDS ORDERED: Fentanyl 100 MCG/2 ML VIAL ONE (14:07)
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
--- NOTE | 2019-02-18 18:57 | RAD ---
LEFT HAND: 02/18/19 A single fluoroscopic image obtained from the OR. INDICATIONS: Intraoperative hardware removal. FINDINGS/IMPRESSION: Tiny metallic clip overlies the first metacarpal on this single image. POS: OFF
== END 2019-02-18 17:02 | disposition home or self-care (01) ==
LOC: SDC 12:11
PROVIDERS: ATTEND Orthopaedic Surgery Hand Surgery
PROC: 0RPT0JZ Removal of Synthetic Substitute from Left Carpometacarpal Joint, Open Approach (ICD-10-PCS; principal; 2019-02-18)
DX: T84.84XA Pain due to internal orthopedic prosthetic devices, implants and grafts, initial encounter (principal); E11.9 Type 2 diabetes mellitus without complications; M06.9 Rheumatoid arthritis, unspecified; I10 Essential (primary) hypertension; Z79.82 Long term (current) use of aspirin; Z79.84 Long term (current) use of oral hypoglycemic drugs; Z79.899 Other long term (current) drug therapy; Z98.890 Other specified postprocedural states
CPT/HCPCS: 76000; 85025; J0690; J2250; J2704; J3010; J3490; S0020

== ENCOUNTER 2019-02-19 10:50 | Outpatient (CLI) | payer MEDICARE, OTHER ==
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
[2019-02-19] MEDS ORDERED: Sodium Chloride 0.9% 15 ML NEB ONE (13:07)
== END 2019-02-19 10:51 | disposition home or self-care (01) ==
LOC: WCC 10:50
PROVIDERS: ATTEND Family Medicine
DX: E11.9 Type 2 diabetes mellitus without complications (principal); K21.9 Gastro-esophageal reflux disease without esophagitis; D64.9 Anemia, unspecified; M19.90 Unspecified osteoarthritis, unspecified site; N20.0 Calculus of kidney; N40.0 Benign prostatic hyperplasia without lower urinary tract symptoms; I10 Essential (primary) hypertension
CPT/HCPCS: A4218

== ENCOUNTER 2021-02-14 15:01 | Observation (INO) | payer MEDICARE ==
[2021-02-14] MEDS ORDERED: CEFAZOLIN 1 GM VIAL ONE (19:25)
[2021-02-14 19:42] LABS: #Eosinphils 0.1 thou/uL (0.0-0.7); #Lymphocytes 1.6 thou/uL (1.20-3.40); #Monocytes 0.4 thou/uL (0.11-0.59); #Neutrophils 4.8 thou/uL (1.40-6.50); %Basophils 0.7 % (0.0-1.0); %Eosinophils 2.1 % (0.0-10.0); %Lymphocytes 22.9 % (21.0-51.0); %Monocytes 6.3 % (0.0-10.0); %Neutrophils 68.1 % (42.0-75.0); Hemoglobin 14.1 g/dL (14.0-18.0); Mean Corpuscular HGB CONC 33.4 g/dL (32.0-36.0); Mean Corpuscular Hemoglobin 33.5 pg (27.0-31.0); Mean Platelet Volume 6.5 fL (7.4-10.4); Platelet Count 267 thou/uL (130-400); RBC Distribution Width 13.1 % (11.5-14.5); Red Blood Cell (RBC) Count 4.22 mill/uL (4.70-6.10); White Blood Cell (WBC) Count 7.1 thou/uL (4.8-10.8)
[2021-02-14 20:11] LABS: ALT (SGPT) 23 U/L (8-55); AST (SGOT) 37 U/L (5-34); Albumin 4.4 g/dL (3.4-4.8); Alkaline Phosphatase 64 U/L (40-110); Anion Gap 16 mmol/L (10-20); BUN (Urea Nitrogen) 24 mg/dL (8.4-25.7); Bilirubin, Total 0.2 mg/dL (0.2-1.2); Calc. Creatinine Clearance 0 mL/min (70-130); Calcium 9.5 mg/dL (7.8-10.44); Carbon Dioxide 23 mmol/L (23-31); Chloride 103 mmol/L (98-107); Glucose 222 mg/dL (83-110); Potassium 5.4 mmol/L (3.5-5.1); Protein, Total 8.4 g/dL (5.8-8.1); Sodium 137 mmol/L (136-145)
[2021-02-14] MEDS ORDERED: Lidocaine 2% PF 5 ML VIAL ONE (20:17)
[2021-02-14] MEDS ORDERED: Bacitracin Zinc Ointment 30 gm TUBE ONE ×2 (20:17→20:20)
[2021-02-14] MEDS ORDERED: Hetastarch 6% 500 ML 0 ML ONE (20:17)
[2021-02-14] MEDS ORDERED: Bupivacaine PF 0.5% 30 ML VIAL ONE (20:17)
[2021-02-14] MEDS ORDERED: Neomycin-Polymyxin 1 ML AMP ONE ×3 (20:17→21:59)
[2021-02-14] MEDS ORDERED: Heparin 10,000 UNITS/ 10 ML VIAL ONE (20:17)
[2021-02-14 20:37] LABS: SARS-CoV-2 NAA Rapid Test Not Detected (NotDetected)
[2021-02-14] MEDS ORDERED: Fentanyl 100 MCG/2 ML VIAL ONE (21:05)
[2021-02-14] MEDS ORDERED: Betamet Acet/Betamet Na Ph 30 MG/5 ML VIAL ONE (21:05)
[2021-02-14] MEDS ORDERED: Acetaminophen 325 MG TAB PO PRN (21:16)
[2021-02-14] MEDS ORDERED: Fentanyl 100 MCG/2 ML VIAL SLOW IVP PRN (21:16)
[2021-02-14] MEDS ORDERED: Ondansetron PF 4 MG/2 ML Vial IVP PRN (21:16)
[2021-02-14] MEDS ORDERED: Promethazine HCl 25 MG/ML VIAL IM PRN ×2 (21:16→23:27)
[2021-02-14] MEDS ORDERED: traMADol HCl 50 MG TAB PO PRN (21:16)
[2021-02-14] MEDS ORDERED: Meperidine HCl/PF 25 MG/ML VIAL IM PRN (21:21)
[2021-02-14] MEDS ORDERED: ePHEDrine 50 MG/ML VIAL ONE (21:27)
[2021-02-14] MEDS ORDERED: Lidocaine 1% PF 5 ML VIAL ONE (21:27)
[2021-02-14] MEDS ORDERED: PROPOFOL 200 MG/20 ML VIAL ONE (21:27)
[2021-02-14] MEDS ORDERED: Ondansetron PF 4 MG/2 ML Vial ONE (21:27)
[2021-02-14] MEDS ORDERED: Communication Order-Pharmacy FS SCH (21:30)
[2021-02-14] MEDS ORDERED: Ondansetron HCl/PF 4 MG/2 ML Vial IVP PRN (23:27)
[2021-02-14] MEDS ORDERED: Promethazine HCl 25 MG/ML VIAL IVPB PRN (23:27)
[2021-02-14] MEDS ORDERED: TETANUS AND DIPHTHERIA TOX/PF 0.5 ML DISP.SYRIN IM SCH (23:30)
[2021-02-15 00:11] VITALS: BMI 25.8
[2021-02-15] MEDS: Morphine 4 MG/ML VIAL SLOW IVP PRN ×2 (00:13→13:29)
[2021-02-15] MEDS: Sodium Chloride 0.9% 1,000 ML IV SCH ×2 (00:44→09:04)
[2021-02-15] MEDS: HYDROcodone/Acetaminophen 5/325 mg Tablet PO PRN ×2 (01:58→09:08)
[2021-02-15] MEDS ORDERED: VANCOMYCIN 1.25 GM/250 ML BAG 1.25 GM in Premix Bag 1 BAG IVPB SCH (08:00)
[2021-02-15] MEDS ORDERED: Aspirin 81 mg Enteric Coated Tablet PO SCH (09:00)
[2021-02-15 19:41] VITALS: BP 135/88; TEMP 98.5
== END 2021-02-15 18:35 | disposition home or self-care (01) ==
LOC: ERS 15:01 → SDC/OP 21:23 → SURG B 23:59
PROVIDERS: ADMIT Orthopaedic Surgery Hand Surgery; ATTEND Orthopaedic Surgery Hand Surgery
PROC: 0PSV04Z Reposition Left Finger Phalanx with Internal Fixation Device, Open Approach (ICD-10-PCS; principal; 2021-02-14)
PROC: 0HQQXZZ Repair Finger Nail, External Approach (ICD-10-PCS; 2021-02-14)
PROC: 0HQQXZZ Repair Finger Nail, External Approach (ICD-10-PCS; 2021-02-14)
PROC: 0HQQXZZ Repair Finger Nail, External Approach (ICD-10-PCS; 2021-02-14)
DX: S62.633B Displaced fracture of distal phalanx of left middle finger, initial encounter for open fracture (principal); S61.311A Laceration without foreign body of left index finger with damage to nail, initial encounter; S61.315A Laceration without foreign body of left ring finger with damage to nail, initial encounter; E11.9 Type 2 diabetes mellitus without complications; E78.5 Hyperlipidemia, unspecified; E78.00 Pure hypercholesterolemia, unspecified; I10 Essential (primary) hypertension; M19.042 Primary osteoarthritis, left hand; Z79.82 Long term (current) use of aspirin; Z79.84 Long term (current) use of oral hypoglycemic drugs; Z79.899 Other long term (current) drug therapy; Z20.822 Contact with and (suspected) exposure to COVID-19; W27.0XXA Contact with workbench tool, initial encounter
CPT/HCPCS: 11012; 11760 ×3; 26765; 73120; 73130; 76000; 80053; 82962; 85025; 96365; 96374; 96375; 96376; 99285; G0378; U0002; 36416; J0690; J0702; J1644; J2001; J2270; J2405; J2704; J3010; J3370; J3490; S0020